=== PATIENT | male | born 1970 | race American Indian/Alaskan Native ===

== ENCOUNTER 2018-12-18 17:28 | Emergency (ER) | payer MEDICAID ==
[~2018-12-18] VITALS: Ht 182.9 cm; Wt 99.8 kg
[~2018-12-18 17:28] MED LIST: ASPIR 8181 MG PO; CLEOCIN HCL150 MG PO; DILANTIN100 MG PO; DIPHENHIST50 MG PO; EPIPEN 2-P0.3 MG/0.3 IM; FLEXERIL PO; GLUCOPHAGE500 MG PO; HUMALOG100 UNIT/1 SUBQ; LIDODERM 5%1 PATCH TOP; LIPITOR 10 MG10 M1 PO; LO-DOSE ASPIRIN81 M1 PO; MOBIC7.5 M1 PO; MULTIVITAMINS1 EAC7 PO; NASONEX17 GM INH; OXYCODONE HCL30 MG PO; PAROXETINE HCL30 MG PO; PERCOCET PO; PHENYTOIN SODI100 M3 PO; PREDNISONE 20 M20 M1 PO; TAMSULOSIN HCL0.4 MG PO; TRIAMCINOLONE 080 G3 TOP; ZANTAC 150MG T150 M1 PO; ZOCOR20 MG PO; ZOFRAN ODT4 MG DISSOLVE; ZYRTEC10 M2 PO; [UNRECOGNIZED DRUG - REMARK]
[2018-12-18] MEDS ORDERED: STOMACH MED (18:05)
[2018-12-18] MEDS ORDERED: FLOMAX0.4 MG PO (18:06)
[2018-12-18] MEDS ORDERED: NAPROSYN500 MG PO ×2 (19:51→19:54)
[2018-12-18 20:07] VITALS: BP 141/84
== END 2018-12-18 20:00 | disposition home or self-care (01) ==
LOC: M.ERS 17:28
DX: S63.8X1A Sprain of other part of right wrist and hand, initial encounter (principal); M25.511 Pain in right shoulder; E11.9 Type 2 diabetes mellitus without complications; K21.9 Gastro-esophageal reflux disease without esophagitis; J44.9 Chronic obstructive pulmonary disease, unspecified; E78.00 Pure hypercholesterolemia, unspecified; F17.210 Nicotine dependence, cigarettes, uncomplicated; Z91.030 Bee allergy status; Z86.73 Personal history of transient ischemic attack (TIA), and cerebral infarction without residual deficits; Z88.5 Allergy status to narcotic agent; Z88.0 Allergy status to penicillin; Z88.2 Allergy status to sulfonamides; Z88.6 Allergy status to analgesic agent; Z85.118 Personal history of other malignant neoplasm of bronchus and lung; W10.8XXA Fall (on) (from) other stairs and steps, initial encounter; Y93.89 Activity, other specified; Y92.89 Other specified places as the place of occurrence of the external cause; Y99.8 Other external cause status

== ENCOUNTER 2020-03-05 18:08 | Emergency (ER) | payer MEDICAID ==
[~2020-03-05] VITALS: Ht 182.9 cm; Wt 99.8 kg
[~2020-03-05 18:08] MED LIST changes: +FLOMAX0.4 MG PO; +NAPROSYN500 MG PO; +STOMACH MED
[2020-03-05 19:10] LABS: ABSOLUTE BASOPHILS 0.1 thou/uL (0.0-0.2); ABSOLUTE EOSINOPHILS 0.2 thou/uL (0.0-0.7); ABSOLUTE LYMPHOCYTES 1.2 thou/uL (0.8-5.3); ABSOLUTE MONOCYTES 0.5 thou/uL (0.0-1.2); ABSOLUTE NEUTROPHILS 11.3 thou/uL (1.6-8.1); BASOPHILS 0.9 %; EOSINOPHILS 1.2 %; HEMATOCRIT 45.8 % (42.0-52.0); HEMOGLOBIN 15.9 gm/dL (14.0-18.0); LYMPHOCYTES 9.2 %; MCH 31.1 pg (26.0-34.0); MCHC 34.7 g/dL (28.0-37.0); MCV 89.6 fL (80.0-100.0); MONOCYTES 3.9 %; MPV 8.4 fl. (7.2-11.1); NUCLEATED RBCS 0 /100WBC; PLATELET COUNT* 235 thou/uL (150-400); POLYS 84.8 %; RBC 5.11 mil/uL (4.50-6.00); RDW-CV 14.1 % (10.5-14.5); WBC 13.3 thou/uL (4.0-11.0)
[2020-03-05 19:19] LABS: CALCIUM 9.1 mg/dL (8.5-10.1); CREATININE 1.6 mg/dL (0.6-1.3); POTASSIUM 3.6 mmol/L (3.5-5.1)
[2020-03-05 19:20] LABS: APTT 26.5 Seconds (25.0-31.3); INR 0.9; PROTIME 10.1 Seconds (9.20-11.50)
[2020-03-05 19:27] LABS: ALBUMIN 3.6 g/dL (3.4-5.0); TOTAL BILIRUBIN 0.4 mg/dL (<0.1-1.0); TOTAL PROTEIN 7.6 g/dL (6.4-8.2)
[2020-03-05 19:51] LABS: INFLUENZA A ANTIGEN Negative (Negative); INFLUENZA B ANTIGEN Negative (Negative)
[2020-03-05] MEDS ORDERED: ZPAK PO (20:54)
[2020-03-05] MEDS ORDERED: METFORMIN HCL500 MG PO (20:54)
[2020-03-05] MEDS ORDERED: VENTOLIN HFA 1818 GM INH (20:55)
[2020-03-06 00:22] VITALS: BP 108/87
--- NOTE | 2020-03-06 13:38 | EKG ---
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: : [id number] Requested By: Nataliia Crowell Order Number: [id number] MD: Brian Mcdaniel Measurements Intervals [place] Rate: 94 P: 64 [place]: 123 QRS: -48 QRSD: 92 T: 41 QT: 365 QTc: 457 Interpretive Statements Sinus rhythm Nonspecific ST segment depression LAD, consider left anterior fascicular block Abnormal R-wave progression, early transition No previous ECG available for comparison Electronically Signed On 03-06-2020 13:38:45 BARKEEP by Brian Mcdaniel [email or web address] <ELECTRONICALLY SIGNED> By: Brian Mcdaniel MD, FACC 03/06/20 1338 1834 1834 Brian Mcdaniel MD, FAC /EPI
== END 2020-03-06 00:20 | disposition home or self-care (01) ==
LOC: M.ERS 18:08
PROVIDERS: Nurse Practitioner Family
DX: E11.65 Type 2 diabetes mellitus with hyperglycemia (principal); B34.9 Viral infection, unspecified; K21.9 Gastro-esophageal reflux disease without esophagitis; J44.9 Chronic obstructive pulmonary disease, unspecified; E78.5 Hyperlipidemia, unspecified; I25.2 Old myocardial infarction; I10 Essential (primary) hypertension; Z79.899 Other long term (current) drug therapy; Z79.82 Long term (current) use of aspirin; Z88.0 Allergy status to penicillin; Z88.2 Allergy status to sulfonamides; Z88.5 Allergy status to narcotic agent; Z91.030 Bee allergy status; Z88.8 Allergy status to other drugs, medicaments and biological substances; Z20.828 Contact with and (suspected) exposure to other viral communicable diseases

== ENCOUNTER 2021-01-03 22:35 | Emergency (ER) | payer MEDICAID ==
[~2021-01-03] VITALS: Ht 182.9 cm; Wt 99.8 kg
[~2021-01-03 22:35] MED LIST changes: +METFORMIN HCL500 MG PO; +VENTOLIN HFA 1818 GM INH; +ZPAK PO
[2021-01-04] MEDS ORDERED: DOXYCYCLINE 10100 MG PO (00:24)
[2021-01-04 01:06] VITALS: BP 131/82
== END 2021-01-04 00:50 | disposition home or self-care (01) ==
LOC: M.ERS 22:35
DX: N49.2 Inflammatory disorders of scrotum (principal); E11.9 Type 2 diabetes mellitus without complications; E78.00 Pure hypercholesterolemia, unspecified; K21.9 Gastro-esophageal reflux disease without esophagitis; J44.9 Chronic obstructive pulmonary disease, unspecified; Z79.899 Other long term (current) drug therapy; Z91.030 Bee allergy status; Z88.5 Allergy status to narcotic agent; Z88.0 Allergy status to penicillin; Z88.2 Allergy status to sulfonamides

== ENCOUNTER → 2021-03-30 | Emergency (ER) | payer MEDICAID ==
[~2021-03-30] VITALS: Ht 182.9 cm; Wt 99.8 kg
[~2021-03-30] MED LIST changes: +DOXYCYCLINE 10100 M2 PO; +DOXYCYCLINE 10100 MG PO; +MEDROLDOSEPACK PO; +PREDNISONE50 MG PO; +PROAIR HFA8.5 GM INH
[2021-03-30 20:30] VITALS: BP 141/96
== END ==
LOC: M.ERS 20:02
DX: H61.23 Impacted cerumen, bilateral (principal); R05.9 Cough, unspecified; J02.9 Acute pharyngitis, unspecified; E11.9 Type 2 diabetes mellitus without complications; I25.2 Old myocardial infarction; E78.00 Pure hypercholesterolemia, unspecified; I10 Essential (primary) hypertension; K21.9 Gastro-esophageal reflux disease without esophagitis; J44.9 Chronic obstructive pulmonary disease, unspecified; Z86.73 Personal history of transient ischemic attack (TIA), and cerebral infarction without residual deficits; Z98.890 Other specified postprocedural states; Z85.118 Personal history of other malignant neoplasm of bronchus and lung; Z79.2 Long term (current) use of antibiotics; Z79.899 Other long term (current) drug therapy; Z79.82 Long term (current) use of aspirin; Z91.030 Bee allergy status; Z88.5 Allergy status to narcotic agent; Z88.0 Allergy status to penicillin; Z88.2 Allergy status to sulfonamides; Z88.6 Allergy status to analgesic agent